=== PATIENT | male | born 1955 | race Two or more races ===

== ENCOUNTER 2024-04-09 10:56 | Outpatient (RCR) | payer BC, SELFPAY ==
[2024-04-08 13:58] LABS: Basophils % (Auto) 0 % (0-2.5); Eosinophils # (Auto) 0.2 Thou/mm3 (0.0-0.5); Eosinophils % (Auto) 3 % (0-10); Hematocrit 40.4 % (41.0-53.0); Hemoglobin 13.5 g/dL (13.5-16.0); Immature Granulocytes % (Auto) 0 % (0-0); Immature Granulocytes Auto 0.02 Thou/mm3 (0.00-0.00); Lymphocytes # (Auto) 1.2 Thou/mm3 (1.0-4.8); Lymphocytes % (Auto) 20 % (10-50); Mean Corpuscular HGB Conc 33.4 g/dl (31.0-37.0); Mean Corpuscular Hemoglobin 29.7 pg (25.0-35.0); Mean Corpuscular Volume 89 fL (80-100); Monocytes # (Auto) 0.5 Thou/mm3 (0.0-0.8); Monocytes % (Auto) 8 % (0-12); Neutrophils # (Auto) 4.2 Thou/mm3 (1.8-7.7); Neutrophils % (Auto) 68 % (37-80); Nucleated Red Blood Cell % 0 /100 WBC (0); Platelet Count 204 Thou/mm3 (140-440); RDW Standard Deviation 42.5 fL (35.1-43.9); Red Blood Count 4.54 Miln/mm3 (4.50-5.90); White Blood Count 6.1 Thou/mm3 (3.8-10.6)
[2024-04-08 14:02] LABS: Alanine Aminotransferase 18 U/L (10-49); Albumin, Serum 4.1 gm/dL (3.4-4.8); Albumin/Globulin Ratio 1.6 (1.2-2.2); Alkaline Phosphatase 87 U/L (46-116); Anion Gap 10 (7-16); Aspartate Amino Transferase 20 U/L (0-34); BUN/Creatinine Ratio 22 Ratio (12-20); Bilirubin,Total 0.5 mg/dL (0.3-1.2); Blood Urea Nitrogen 22 mg/dL (9-23); Calcium 9.3 mg/dL (8.3-10.6); Calcium (Corrected) 9.3 mg/dL (8.5-10.1); Carbon Dioxide 24.4 mMol/L (20.0-31.0); Chloride 106 mMol/L (98-107); Globulin 2.5 gm/dL (2.3-3.5); Glucose 83 mg/dL (74-106); Osmolality,Calculated 281 (275-295); Potassium 4.1 mMol/L (3.4-5.1); Sodium 140 mMol/L (136-145); Total Protein 6.6 gm/dL (5.7-8.2); eGFR > 60 See Note
== END 2024-04-10 23:59 | disposition home or self-care (01) ==
LOC: SCTC 10:56
PROVIDERS: PCP Physician Assistant; Referring Provider Physician Assistant; Visit Provider Internal Medicine Hematology & Oncology
DX: C18.6 Malignant neoplasm of descending colon (principal); Z90.49 Acquired absence of other specified parts of digestive tract; Z92.21 Personal history of antineoplastic chemotherapy; G62.0 Drug-induced polyneuropathy; T45.1X5D Adverse effect of antineoplastic and immunosuppressive drugs, subsequent encounter; R91.8 Other nonspecific abnormal finding of lung field
CPT/HCPCS: 36591; 80053; 82378; 85025; 99212; A4216; J1642; G0463

== ENCOUNTER → 2024-05-05 | Outpatient (CLI) | payer BC, SELFPAY ==
--- NOTE | 2024-05-05 13:00 | XR_ITS ---
Examination: CT chest with intravenous contrast CT abdomen with intravenous contrast CT pelvis with intravenous contrast 2-D coronal and sagittal reconstructions Time of exam: May 05, 2024 1350 hrs. Comparison PET/CT scan January 03, 2023 Indications: Diagnosis malignant neoplasm descending colon, post resection restaging CTDI: vol (mGy) : 21.7 DLP: (mGycm): 1154 Technique: Multiple axial images of the chest, abdomen and pelvis with intravenous contrast, 3.0 mm slice thickness. Images obtained post intravenous injection Isovue 370 60 cc. 2-D sagittal and coronal reconstructions. Low dose protocols were performed. One or more of the following dose reduction techniques were used; automated exposure control, adjustment of the mA and/or KV according to patient size, use of iterative reconstruction technique. Findings: No thoracic aortic aneurysm dilatation Pulmonary artery segments are not enlarged No paratracheal tracheobronchial or bronchopulmonary adenopathy 5 mm pulmonary nodule right lower lobe 3 mm pulmonary nodule right upper lobe 2 mm pulmonary nodule left lower lobe No pneumonia or pulmonary edema 6 mm liver cyst Fatty liver Contracted gallbladder Spleen not enlarged No pancreatic or adrenal mass No abdominal or pelvic lymphadenopathy 7 cm fat-containing umbilical hernia containing bowel but no incarcerated bowel Normal appendix Descending colon clips No pelvic lymphadenopathy Urinary bladder intact Severe osteopenia Advanced disc narrowing L4-L5 Impression: Subcentimeter noncalcified pulmonary nodules as above, with this study as baseline recommend 6 month follow-up CT chest without contrast
== END | disposition home or self-care (01) ==
PROVIDERS: PCP Physician Assistant; Referring Provider Nurse Practitioner Family; Visit Provider Nurse Practitioner Family
DX: R91.8 Other nonspecific abnormal finding of lung field (principal); C18.6 Malignant neoplasm of descending colon
CPT/HCPCS: 71260; 74177; A4649; Q9967

== ENCOUNTER 2024-05-12 09:56 | Outpatient (RCR) | payer BC, MEDICARE, SELFPAY | END 2024-06-08 23:59 | disposition home or self-care (01) | LOC: SCTC 09:56 | PROVIDERS: PCP Physician Assistant; Referring Provider Physician Assistant; Visit Provider Nurse Practitioner Family | DX: R91.1 Solitary pulmonary nodule (principal); K42.9 Umbilical hernia without obstruction or gangrene; G62.0 Drug-induced polyneuropathy; T45.1X5D Adverse effect of antineoplastic and immunosuppressive drugs, subsequent encounter; C18.6 Malignant neoplasm of descending colon; Z90.49 Acquired absence of other specified parts of digestive tract; Z92.21 Personal history of antineoplastic chemotherapy | CPT/HCPCS: 99212; G0463 ==

== ENCOUNTER → 2024-07-01 | Outpatient (CLI) | payer MEDICARE, BC, SELFPAY ==
--- NOTE | 2024-07-01 06:40 | EKG_ITS ---
[facility] Test Date: 2024-07-01 Pat Name: SCOTT REYNA Department: Room: - Gender: Male It Help Desk Technician: JOSE : 1955 Requested By: Kvng Barros Order Number: [id number] Reading MD: Kvng Barros Measurements Intervals [place] Rate: 49 P: IN: QRS: -35 QRSD: 90 T: 52 QT: 424 QTc: 383 Interpretive Statements SINUS BRADYCARDIA WITH 2ND DEGREE AV BLOCK, MOBITZ TYPE II MARKED LEFT AXIS DEVIATION [QRS AXIS < -30] POSSIBLE RIGHT VENTRICULAR CONDUCTION DELAY [RSR (QR) IN V1/V2] Compared to ECG 11/15/2022 10:21:45 Sinus rhythm no longer present First degree AV block no longer present /store/S0/[id number].pdf
[2024-07-01 09:58] VITALS: BMI 34.9
[2024-07-01 10:24] LABS: Collection Type, Urine Clean Catch
[2024-07-01 12:27] LABS: Basophils % (Auto) 0 % (0-2.5); Eosinophils # (Auto) 0.3 Thou/mm3 (0.0-0.5); Eosinophils % (Auto) 4 % (0-10); Hematocrit 43.8 % (41.0-53.0); Hemoglobin 15.1 g/dL (13.5-16.0); Immature Granulocytes % (Auto) 0 % (0-0); Immature Granulocytes Auto 0.01 Thou/mm3 (0.00-0.00); Lymphocytes # (Auto) 1.5 Thou/mm3 (1.0-4.8); Lymphocytes % (Auto) 21 % (10-50); Mean Corpuscular HGB Conc 34.5 g/dl (31.0-37.0); Mean Corpuscular Hemoglobin 30.1 pg (25.0-35.0); Mean Corpuscular Volume 87 fL (80-100); Monocytes # (Auto) 0.7 Thou/mm3 (0.0-0.8); Monocytes % (Auto) 10 % (0-12); Neutrophils # (Auto) 4.5 Thou/mm3 (1.8-7.7); Neutrophils % (Auto) 65 % (37-80); Nucleated Red Blood Cell % 0 /100 WBC (0); Platelet Count 184 Thou/mm3 (140-440); RDW Standard Deviation 44.1 fL (35.1-43.9); Red Blood Count 5.01 Miln/mm3 (4.50-5.90); White Blood Count 6.9 Thou/mm3 (3.8-10.6)
[2024-07-01 12:33] LABS: Bilirubin,Urine Negative (Negative); Blood,Urine Negative (Negative); Clarity,Urine Clear (Clear/Hazy); Color,Urine Lt-Yellow (Lt Yel-Yel); Glucose, Urine Negative (Negative); Ketones,Urine Negative (Negative); Leukocyte Esterase,Urine Negative (Negative); Nitrite,Urine Negative (Negative); PH,Urine 5.5 (5.0-7.0); Partial Thromboplastin Time 28.1 Seconds (22.0-36.0); Protein,Urine Negative (Neg - Trace); RBC,Urine 3 /hpf (0-3); Specific Gravity,Urine 1.021 (1.001-1.035); Squamous Epithelial Cell,Urine < 1 /hpf (0-5); Urobilinogen,Urine Negative mg/dL (0.0-1.0); WBC,Urine 1 /hpf (0-5)
[2024-07-01 12:38] LABS: Alanine Aminotransferase 37 U/L (10-49); Albumin, Serum 4.4 gm/dL (3.4-4.8); Albumin/Globulin Ratio 1.6 (1.2-2.2); Alkaline Phosphatase 94 U/L (46-116); Anion Gap 9 (7-16); Aspartate Amino Transferase 30 U/L (0-34); BUN/Creatinine Ratio 18 Ratio (12-20); Bilirubin,Total 0.6 mg/dL (0.3-1.2); Blood Urea Nitrogen 22 mg/dL (9-23); Calcium 9.2 mg/dL (8.3-10.6); Calcium (Corrected) 9.2 mg/dL (8.5-10.1); Carbon Dioxide 22.4 mMol/L (20.0-31.0); Chloride 108 mMol/L (98-107); Creatinine (Component) 1.2 mg/dL (0.6-1.3); Estimated Creatinine Clearance 69.8 mL/min (>60); Globulin 2.8 gm/dL (2.3-3.5); Glucose 102 mg/dL (74-106); Osmolality,Calculated 280 (275-295); Potassium 4.5 mMol/L (3.4-5.1); Sodium 139 mMol/L (136-145); Total Protein 7.2 gm/dL (5.7-8.2); eGFR > 60 See Note
--- NOTE | 2024-07-01 15:02 | SUR.PREOP ---
EKG second degree block, reviewed with Dr Blackburn. Dr Blackburn spoke with Dr Barros and it was decided to have pt see youth ministry director, Pt aware of surgery cancelled and to call Dr Barros's office for cardiac referral.
--- NOTE | 2024-07-01 15:07 | ESPR_ITS ---
Documentation for date of: 07/01/24 BRIEF PRE-OP ANESTHESIA NOTE: This patient was scheduled for elective hernia repair with Dr. Barros tomorrow but it's cancelled due to abnormal EKG and cardiac clearance. He has h/o colon cancer. Pre-op RN notified me about his EKG abnormality on routine pre-op eval. His EKG today shows sinus rhythm with 1 deg AVB and occasional 2nd deg Type 1 AVB. In 11/2022, his EKG did not show this. So I called and spoke with Dr Barros and reported his concerning EKG and we decided to cancel his surgery for tomorrow and his office will arrange for cardiology referral. Kinyarwanda speaking pre-op RN then called the patient and notified about his cancellation and about his EKG abnormality in my presence and the patient agreed and had no further questions for me. Tristin Blackburn MD
== END | disposition home or self-care (01) ==
LOC: SLAB 07-02 08:52
PROVIDERS: PCP Physician Assistant; Referring Provider Specialist; Visit Provider Specialist
DX: C18.6 Malignant neoplasm of descending colon (principal)
CPT/HCPCS: 36415; 80053; 81001; 85025; 85730; 93005; J1580; J7040

== ENCOUNTER → 2024-08-05 | Day surgery (SDC) | payer MEDICARE, BC, SELFPAY ==
--- NOTE | 2024-08-04 07:00 | EKG_ITS ---
[facility] (Formerly [facility])[3] Test Date: 2024-08-04 Pat Name: SCOTT REYNA Department: Room: - Gender: Male Manager Maintenance: KAVITHA : 1955 Requested By: Mark Zhao Order Number: [id number] Reading MD: Mark Zhao Measurements Intervals [place] Rate: 52 P: [place]: QRS: -34 QRSD: 90 T: 46 QT: 405 QTc: 378 Interpretive Statements SINUS BRADYCARDIA WITH 2ND DEGREE AV BLOCK, MOBITZ TYPE II MARKED LEFT AXIS DEVIATION [QRS AXIS < -30] POSSIBLE RIGHT VENTRICULAR CONDUCTION DELAY [RSR (QR) IN V1/V2] Compared to ECG 07/01/2024 10:40:28 No significant changes /store/S0/[id number]/ecg/[id number].pdf
[2024-08-04 12:22] LABS: Basophils % (Auto) 0 % (0-2.5); Eosinophils # (Auto) 0.2 Thou/mm3 (0.0-0.5); Eosinophils % (Auto) 3 % (0-10); Hematocrit 41.9 % (41.0-53.0); Hemoglobin 14.5 g/dL (13.5-16.0); Immature Granulocytes % (Auto) 0 % (0-0); Immature Granulocytes Auto 0.02 Thou/mm3 (0.00-0.00); Lymphocytes # (Auto) 0.9 Thou/mm3 (1.0-4.8); Lymphocytes % (Auto) 14 % (10-50); Mean Corpuscular HGB Conc 34.6 g/dl (31.0-37.0); Mean Corpuscular Hemoglobin 30.2 pg (25.0-35.0); Mean Corpuscular Volume 87 fL (80-100); Monocytes # (Auto) 0.6 Thou/mm3 (0.0-0.8); Monocytes % (Auto) 8 % (0-12); Neutrophils # (Auto) 5.2 Thou/mm3 (1.8-7.7); Neutrophils % (Auto) 75 % (37-80); Nucleated Red Blood Cell % 0 /100 WBC (0); Platelet Count 162 Thou/mm3 (140-440); RDW Standard Deviation 43.6 fL (35.1-43.9)
[2024-08-04 12:33] LABS: Anion Gap 7 (7-16); BUN/Creatinine Ratio 21 Ratio (12-20); Blood Urea Nitrogen 21 mg/dL (9-23); Calcium 8.9 mg/dL (8.3-10.6); Carbon Dioxide 25.6 mMol/L (20.0-31.0); Chloride 108 mMol/L (98-107); Glucose 97 mg/dL (74-106); Osmolality,Calculated 284 (275-295); Potassium 4.8 mMol/L (3.4-5.1); Sodium 141 mMol/L (136-145); eGFR > 60 See Note
[2024-08-04 12:39] LABS: Partial Thromboplastin Time 27.2 Seconds (22.0-36.0); Prothrombin Time 11.1 Seconds (9.0-12.2)
[2024-08-05 07:12] VITALS: BP 126/83; BP 136/78; PULSE 70; RESP 18; TEMP 38.1; O2SAT 95; BMI 32.6
--- NOTE | 2024-08-05 07:51 | PC.NURSE ---
As per Dr. Wise, pacemaker insertion cancelled at this time due to patient feeling congested and elevated temporal temperature 100.5
== END | disposition home or self-care (01) ==
LOC: SCCL 06:37
PROVIDERS: PCP Physician Assistant; Referring Provider Internal Medicine Cardiovascular Disease; Visit Provider Internal Medicine Cardiovascular Disease
DX: I49.5 Sick sinus syndrome (principal); Z01.810 Encounter for preprocedural cardiovascular examination
CPT/HCPCS: 33208; 36415; 80048; 85025; 85610; 85730; 93005; A4649; C1894; J0153; J0171; J0282; J0461; J0689; J2250; J2310; J2371; J3010; J3490

== ENCOUNTER 2024-08-17 06:43 | Day surgery (SDC) | payer MEDICARE, BC, SELFPAY ==
[2024-08-13 13:49] VITALS: BMI 32.7
[2024-08-14 12:50] LABS: Basophils % (Auto) 0 % (0-2.5); Eosinophils # (Auto) 0.4 Thou/mm3 (0.0-0.5); Eosinophils % (Auto) 6 % (0-10); Hematocrit 45.4 % (41.0-53.0); Hemoglobin 15.3 g/dL (13.5-16.0); Immature Granulocytes % (Auto) 1 % (0-0); Immature Granulocytes Auto 0.03 Thou/mm3 (0.00-0.00); Lymphocytes # (Auto) 1.7 Thou/mm3 (1.0-4.8); Lymphocytes % (Auto) 26 % (10-50); Mean Corpuscular HGB Conc 33.7 g/dl (31.0-37.0); Mean Corpuscular Hemoglobin 29.9 pg (25.0-35.0); Mean Corpuscular Volume 89 fL (80-100); Monocytes # (Auto) 0.5 Thou/mm3 (0.0-0.8); Monocytes % (Auto) 7 % (0-12); Neutrophils # (Auto) 3.9 Thou/mm3 (1.8-7.7); Neutrophils % (Auto) 61 % (37-80); Nucleated Red Blood Cell % 0 /100 WBC (0); Platelet Count 196 Thou/mm3 (140-440); RDW Standard Deviation 43.5 fL (35.1-43.9); Red Blood Count 5.11 Miln/mm3 (4.50-5.90); White Blood Count 6.5 Thou/mm3 (3.8-10.6)
[2024-08-14 12:59] LABS: Partial Thromboplastin Time 27.6 Seconds (22.0-36.0); Prothrombin Time 10.9 Seconds (9.0-12.2)
[2024-08-14 13:04] LABS: Anion Gap 9 (7-16); BUN/Creatinine Ratio 14 Ratio (12-20); Blood Urea Nitrogen 17 mg/dL (9-23); Calcium 9.3 mg/dL (8.3-10.6); Carbon Dioxide 25.5 mMol/L (20.0-31.0); Chloride 104 mMol/L (98-107); Creatinine (Component) 1.2 mg/dL (0.6-1.3); Glucose 95 mg/dL (74-106); Osmolality,Calculated 277 (275-295); Potassium 4.5 mMol/L (3.4-5.1); Sodium 138 mMol/L (136-145); eGFR > 60 See Note
[2024-08-17] VITALS (12 sets, daily range): BP systolic 121–151; BP diastolic 76–96; PULSE 60–74; RESP 12–19; TEMP 36.6–36.9; O2SAT 94–97
--- NOTE | 2024-08-17 09:14 | PC.NURSE ---
0840 patient is awake, alert, breathing unlabored, s/p pacemaker insertion, dressing to right chest dry with no bleeding. Report received from Jaylen ROBERSON, patient to recover for 2 hours. Vancomycin IV insusion ordered, chest xray ordered, arm sling ordered for 24 hours. Keflex PO antibiotic will be prescribed by MD to be taken at home.
--- NOTE | 2024-08-17 09:15 | XR_ITS ---
Examination: AP chest single view Technique one AP portable upright chest single view Date and time: August 17, 2024 0901 hours Comparison December 17, 2022 INDICATIONS: Postop pacemaker insertion FINDINGS: Cardiac leads satisfactory position No pneumothorax Stable position left subclavian Port-A-Cath tip SVC IMPRESSION: Cardiac leads satisfactory position No pneumothorax
[2024-08-17] MEDS: VANCOMYCIN/NS 1 GM IVPB 200 ML IV (09:22)
--- NOTE | 2024-08-17 16:45 | PC.NURSE ---
1124 patient is awake, alert, breathing unlabored, dressing to right chest dry with no bleeding, arm sling in place. vancomycin infusion completed, chest xray completed: leads in satisfactory position, no pneumothorax noted. Discharge instructions given to patient and Hellen, patient discharged home in wheelchair with all belongings.
--- NOTE | 2024-08-18 01:57 | ESOP_ITS ---
RE: SCOTT REYNA : 1955 DATE OF OPERATION: 08/17/2024 PROCEDURE PERFORMED: Implantation of dual chamber AV sequential permanent pacemaker. PREOPERATIVE DIAGNOSIS: Sick sinus syndrome, second-degree heart block, Mobitz type 2 heart block. POSTOPERATIVE DIAGNOSIS: Successful implantation of dual chamber AV sequential [employer] safe permanent pacemaker. HISTORY AND INDICATION: The patient is a 69-year-old male with history of multiple problems including hypertension, history of colon carcinoma and multiple medical problems. He has been having severe bradycardia. Heart rate drops to 40, type 2 second-degree Mobitz type 2 heart block and sick sinus syndrome, intermittent complete heart block as demonstrated on 7-day monitoring. Recommended cardiac clearance for head and neck surgery, but because of heart block, recommended to have pacemaker implantation prior to proceed with anesthesia. Class 1 indication for pacemaker implantation. DESCRIPTION OF PROCEDURE: The patient brought to cardiac catheterization laboratory. He was given conscious sedation, 2 mg Versed, 100 mcg of fentanyl for sedation. Right subclavian area was chosen because the left side has Port-A-cath. Right subclavian vein was cannulated by a micropuncture technique. Two guidewires were introduced. A linear incision was made with blunt dissection. Pocket was created. A 6 Green[place]ic sheath was introduced. The atrial, ventricle active fixation leads placed in the right atrial appendage, right ventricle apex respectively. Excellent thresholds are obtained. After obtaining a satisfactory threshold, both leads were anchored to the pectoralis fascia with 2-0 chromic suture. Skin was closed using ann. The patient tolerated the procedure well. No complications. DEVICE DETAILS: The device is manufactured by [employer], 2272. Serial number is [id number], atrial lead is 46 cm, [id number] model number. Serial number is [facility] [id number]. Ventricular lead serial number is [id number] cm length. The device threshold, atrial threshold 1.25 volts, capture threshold sensing 2 millivolts, lead impedance 510. Ventricle threshold is 0.5 volts, capture threshold is sensing 8 millivolts, lead impedance 700. The device program rate of 60 lower rate limit, upper rate limit 125. The device is MRI safe. FINAL SUMMARY: Successful implantation of dual chamber AV sequential permanent pacemaker. No complications. The patient was given IV antibiotics, Ancef before, and vancomycin 1 g after. The patient was discharged home in stable condition. Chest x-ray, no pneumothorax. DT: 00:12:53 TT: 01:33:00 Ref: [id number] - TID: [id number] MTDD
== END 2024-08-17 11:24 | disposition home or self-care (01) ==
PROVIDERS: Referring Provider Internal Medicine Cardiovascular Disease; Visit Provider Internal Medicine Cardiovascular Disease
PROC: (CPT 33208; principal; 2024-08-17 07:30)
DX: I49.5 Sick sinus syndrome (principal); I44.1 Atrioventricular block, second degree; I10 Essential (primary) hypertension; Z85.038 Personal history of other malignant neoplasm of large intestine
CPT/HCPCS: 33208; 36415; 80048; 85025; 85610; 85730; 99152; 99153; A4565; A4649; C1785; C1894; C1898; J0171; J0461; J0689; J0690; J2250; J2310; J2371; J3010; J3370; J3490

== ENCOUNTER → 2024-09-10 | Outpatient (CLI) | payer BC, MEDICARE, SELFPAY ==
[2024-09-10 10:34] LABS: Basophils # (Auto) 0.0 Thou/mm3 (0.0-0.2); Basophils % (Auto) 0 % (0-2.5); Eosinophils # (Auto) 0.2 Thou/mm3 (0.0-0.5); Eosinophils % (Auto) 4 % (0-10); Hematocrit 42.6 % (41.0-53.0); Hemoglobin 14.4 g/dL (13.5-16.0); Immature Granulocytes Auto 0.02 Thou/mm3 (0.00-0.00); Lymphocytes # (Auto) 1.4 Thou/mm3 (1.0-4.8); Lymphocytes % (Auto) 27 % (10-50); Mean Corpuscular HGB Conc 33.8 g/dl (31.0-37.0); Mean Corpuscular Hemoglobin 29.9 pg (25.0-35.0); Mean Corpuscular Volume 88 fL (80-100); Monocytes # (Auto) 0.5 Thou/mm3 (0.0-0.8); Monocytes % (Auto) 9 % (0-12); Neutrophils # (Auto) 3.0 Thou/mm3 (1.8-7.7); Neutrophils % (Auto) 60 % (37-80); Nucleated Red Blood Cell # 0.00 Thou/mm3 (0.00-0.00); Nucleated Red Blood Cell % 0 /100 WBC (0); Platelet Count 163 Thou/mm3 (140-440); RDW Standard Deviation 45.3 fL (35.1-43.9); Red Blood Count 4.82 Miln/mm3 (4.50-5.90); White Blood Count 5.1 Thou/mm3 (3.8-10.6)
[2024-09-10 11:03] LABS: Carcinoembryonic Antigen 2.6 ng/mL (0.0-5.0)
[2024-09-10 11:12] LABS: Alanine Aminotransferase 19 U/L (10-49); Albumin, Serum 4.2 gm/dL (3.4-4.8); Albumin/Globulin Ratio 1.6 (1.2-2.2); Alkaline Phosphatase 81 U/L (46-116); Anion Gap 6 (7-16); Aspartate Amino Transferase 22 U/L (0-34); BUN/Creatinine Ratio 9 Ratio (12-20); Bilirubin,Total 0.9 mg/dL (0.3-1.2); Blood Urea Nitrogen 10 mg/dL (9-23); Calcium 9.1 mg/dL (8.3-10.6); Calcium (Corrected) 9.1 mg/dL (8.5-10.1); Carbon Dioxide 24.9 mMol/L (20.0-31.0); Chloride 107 mMol/L (98-107); Creatinine (Component) 1.1 mg/dL (0.6-1.3); Globulin 2.6 gm/dL (2.3-3.5); Glucose 104 mg/dL (74-106); Osmolality,Calculated 274 (275-295); Potassium 4.4 mMol/L (3.4-5.1); Sodium 138 mMol/L (136-145); Total Protein 6.8 gm/dL (5.7-8.2); eGFR > 60 See Note
== END | disposition home or self-care (01) ==
PROVIDERS: PCP Physician Assistant; Referring Provider Nurse Practitioner Family; Visit Provider Nurse Practitioner Family
DX: C18.6 Malignant neoplasm of descending colon (principal)
CPT/HCPCS: 36415; 80053; 82378; 85025

== ENCOUNTER 2024-09-14 09:37 | Outpatient (RCR) | payer BC, MEDICARE, SELFPAY | END 2024-10-08 23:59 | disposition home or self-care (01) | LOC: SCTC 09:37 | PROVIDERS: PCP Physician Assistant; Referring Provider Internal Medicine Hematology & Oncology; Visit Provider Nurse Practitioner Family | DX: C18.6 Malignant neoplasm of descending colon (principal); Z90.49 Acquired absence of other specified parts of digestive tract; Z92.21 Personal history of antineoplastic chemotherapy; G62.0 Drug-induced polyneuropathy; T45.1X5D Adverse effect of antineoplastic and immunosuppressive drugs, subsequent encounter; R91.1 Solitary pulmonary nodule; K42.9 Umbilical hernia without obstruction or gangrene | CPT/HCPCS: 99212; G0463 ==

== ENCOUNTER 2024-09-28 08:20 | Day surgery (SDC) | payer MEDICARE, BC, SELFPAY ==
[2024-09-25 08:59] VITALS: BMI 36.5
[2024-09-25 09:40] LABS: Collection Type, Urine Clean Catch
[2024-09-25 12:02] LABS: Basophils # (Auto) 0.0 Thou/mm3 (0.0-0.2); Basophils % (Auto) 0 % (0-2.5); Eosinophils # (Auto) 0.2 Thou/mm3 (0.0-0.5); Eosinophils % (Auto) 3 % (0-10); Hematocrit 42.5 % (41.0-53.0); Hemoglobin 14.9 g/dL (13.5-16.0); Immature Granulocytes Auto 0.02 Thou/mm3 (0.00-0.00); Lymphocytes # (Auto) 1.4 Thou/mm3 (1.0-4.8); Lymphocytes % (Auto) 25 % (10-50); Mean Corpuscular HGB Conc 35.1 g/dl (31.0-37.0); Mean Corpuscular Hemoglobin 30.5 pg (25.0-35.0); Mean Corpuscular Volume 87 fL (80-100); Monocytes # (Auto) 0.5 Thou/mm3 (0.0-0.8); Monocytes % (Auto) 9 % (0-12); Neutrophils # (Auto) 3.4 Thou/mm3 (1.8-7.7); Neutrophils % (Auto) 62 % (37-80); Nucleated Red Blood Cell # 0.00 Thou/mm3 (0.00-0.00); Nucleated Red Blood Cell % 0 /100 WBC (0); Platelet Count 180 Thou/mm3 (140-440); RDW Standard Deviation 45.1 fL (35.1-43.9); Red Blood Count 4.89 Miln/mm3 (4.50-5.90); White Blood Count 5.5 Thou/mm3 (3.8-10.6)
[2024-09-25 12:06] LABS: Bilirubin,Urine Negative (Negative); Blood,Urine Negative (Negative); Clarity,Urine Clear (Clear/Hazy); Color,Urine Yellow (Lt Yel-Yel); Glucose, Urine Negative (Negative); Ketones,Urine Negative (Negative); Leukocyte Esterase,Urine Negative (Negative); Nitrite,Urine Negative (Negative); PH,Urine 5.5 (5.0-7.0); Protein,Urine Negative (Neg - Trace); RBC,Urine 3 /hpf (0-3); Specific Gravity,Urine 1.022 (1.001-1.035); Squamous Epithelial Cell,Urine < 1 /hpf (0-5); Urobilinogen,Urine Negative mg/dL (0.0-1.0); WBC,Urine 2 /hpf (0-5)
[2024-09-25 12:27] LABS: Alanine Aminotransferase 21 U/L (10-49); Albumin, Serum 4.3 gm/dL (3.4-4.8); Albumin/Globulin Ratio 1.6 (1.2-2.2); Alkaline Phosphatase 95 U/L (46-116); Anion Gap 14 (7-16); Aspartate Amino Transferase 24 U/L (0-34); BUN/Creatinine Ratio 14 Ratio (12-20); Bilirubin,Total 0.5 mg/dL (0.3-1.2); Blood Urea Nitrogen 14 mg/dL (9-23); Calcium 8.9 mg/dL (8.3-10.6); Calcium (Corrected) 8.9 mg/dL (8.5-10.1); Carbon Dioxide 22.5 mMol/L (20.0-31.0); Chloride 106 mMol/L (98-107); Creatinine (Component) 1.0 mg/dL (0.6-1.3); Estimated Creatinine Clearance 81.9 mL/min (>60); Globulin 2.7 gm/dL (2.3-3.5); Glucose 110 mg/dL (74-106); Osmolality,Calculated 284 (275-295); Partial Thromboplastin Time 27.4 Seconds (22.0-36.0); Potassium 4.4 mMol/L (3.4-5.1); Sodium 142 mMol/L (136-145); Total Protein 7.0 gm/dL (5.7-8.2); eGFR > 60 See Note
[2024-09-28] VITALS (10 sets, daily range): BP systolic 121–139; BP diastolic 71–94; PULSE 60–86; RESP 12–18; TEMP 36.2–37.2; O2SAT 92–97; BMI 35.6
--- NOTE | 2024-09-28 09:16 | SUR.PREOP ---
Patient expressed gratitude for prayer before their procedure.
--- NOTE | 2024-09-28 12:16 | SUR.PHASEI ---
1216 patient arrived to recovery resting comfortably in [facility], on oxygen 12L via oxy mask with an oral airway and nasal airway in place, oxygen level 93%, Dr. Blackburn aware and okay with oxygen level, breathing unlabored, vital signs stable, dressing intact to abdomen; ann, telfa, gauze, abd, medipore tape, no bleeding noted, 7flat JARED drain in place with drain sponge with serosanguineous fluid, report received from Dr. Blackburn and Haider ROBERSON
--- NOTE | 2024-09-28 12:35 | SUR.PHASEI ---
pt lying in [facility] with eyes closed, breathing unalbored, dressing to abdomen clean, dry, and intact with abdominal binder in place, JARED drain intact and draining serosanguineous fluid, report from Katerin Bañuelos RN
--- NOTE | 2024-09-28 12:35 | SUR.PHASEI ---
1235 Report given to Katerin Gusman RN
--- NOTE | 2024-09-28 12:45 | SUR.PHASEI ---
pt tolerating oral fluids without difficulty swallowing or n/v
--- NOTE | 2024-09-28 12:50 | PD.SUROPNT ---
Date of Procedure 09/28/24 Pre Op Diagnosis Incarcerated ventral incisional hernia Post Op Diagnosis Same. Procedure Repair of ventral incarcerated incisional hernia and an umbilical hernia measuring 13 cm in diameter. Implantation of Ventralex ST oval large patch. On September 28, 2024 Intraoperative ultrasound and IRMA block Findings This patient had a large ventral incisional hernia that was incarcerated with bowel and omentum. The defect measured about 13 cm in vertical length and then 10 cm horizontally. The hernia also extended laterally for 10 cm. This required repair. The lysis of adhesions was necessary and was carried out. Patient also had an umbilical hernia that was incorporated into the ventral hernia repair. Procedure Description The patient is interviewed in the preoperative area and the procedure was discussed in detail with the patient including expectation of outcomes. Explanation of the technique and complications. An informed consent was obtained. Anesthesia consent was obtained by the anesthesiologist. The hernia sites were marked on the surface. Patient is brought back to the operating room. The patient is positioned supine on the operating table and general anesthesia is administered in a satisfactory manner. The chest abdomen and thigh genitalia regions are prepped and draped in usual manner. IV antibiotics were given and a timeout procedure was carried out. Intraoperative ultrasound is carried out with 7.5 MHz linear digital ultrasound probe. The hernia defects were identified and marked on the surface to assess the extent of the procedure. Then the local anesthesia quarter percent Marcaine with epinephrine is used. Vertical incision is made around the previous incision and scar is removed. Dissection is carried out in the subcutaneous tissue to the fascia and the 2 different defects are identified. Gentle dissection is carried out and hernia sacs are isolated. The sac is opened and was removed as specimen. There were significantly dense adhesions of the omentum within the hernia sac and surrounding subcutaneous tissue. The contents are reduced. Hemostasis is achieved. Dissection is carried out circumferentially from the peritoneal side to make sure there were no adhesions and bowel attached to the anterior abdominal wall. Lysis of adhesions is carried out on the peritoneal side releasing the omental adhesions circumferentially to about 10 cm around. All the hernias defects were incorporated into one defect. The defect is measured. It is about 13.5 cm in length and 7 cm in the width. The laps and instrument counts are obtained they are correct x2 and then I selected a Ventrio ST oval patch to be placed in the underlay position. The patch is oval and measures about 17.5 cm in maximum length. The patch is secured in the preperitoneal space and attached to the fascia in circumferential manner by interrupted O' Ethibond stitches. Laps and instrument counts were correct ?2. The defect in the fascia is closed over the patch. Patch was previously irrigated with gentamicin solution. Hemostasis is achieved. By separate stab incision 7 [place] Qamar-Butler is placed on the left side where the large portion of the hernia sac was it was sutured in place using 2-0 nylon suture. Operative field is thoroughly irrigated with saline solution and the subcutaneous tissues approximated with 3-0 chromic interrupted suture. The skin is approximated by ann. Tap block is carried out bilaterally by injecting half percent Marcaine with epinephrine on both the sides with the rectus abdominis block. Sterile dressing and abdominal binder is applied. Patient tolerated the procedure very well complications none. Patient is transferred to recovery room in a satisfactory condition. Anesthesia GETA Drains 7 [place]raini flat Qamar-Butler Pathology / specimen Other (Hernia sac and skin scar) Estimated Blood Loss 15 Condition Stable Disposition PACU Surgeon Kvng Barros MD Surgical Staff Operation Date: 09/28/24 11:45 Case Staff Anesthesiologist: Tristin Blackburn RNchief maintenance supervisor: Mari Siegel RN top lift and automatic window repairer Brenda surgical garment assembly supervisor with the surgical technology student.
--- NOTE | 2024-09-28 13:11 | SUR.PHASEII ---
report to Katerin Bañuelos RN
--- NOTE | 2024-09-28 13:11 | SUR.PHASEII ---
1311 Report received from Katerin Gusman RN
--- NOTE | 2024-09-28 13:54 | SUR.PHASEII ---
1354 Patient meets discharge criteria from recovery, awake and alert, breathing unlabored, vital signs stable, denies pain, dressing intact; no bleeding noted, JARED drain education provided to patient and patient , all questions answer regarding drain, drinking fluids; denies nausea, discharge instructions given to patient and patients with the assistance of the telephone commission sales associate Araceli, patients signed discharge instructions. Patient given all his belongings prior to discharge, transported via wheelchair and left in a private vehicle.
== END 2024-09-28 13:54 | disposition home or self-care (01) ==
PROVIDERS: PCP Physician Assistant; Referring Provider Specialist; Visit Provider Specialist
PROC: (CPT 49596; principal; 2024-09-28 11:30)
DX: K43.0 Incisional hernia with obstruction, without gangrene (principal); I49.5 Sick sinus syndrome; Z85.038 Personal history of other malignant neoplasm of large intestine; Z95.0 Presence of cardiac pacemaker; K42.0 Umbilical hernia with obstruction, without gangrene
CPT/HCPCS: 49596; 36415; 80053; 81001; 85025; 85730; A4217; A4649; C1781; J0131; J0690; J0694; J1100; J1171; J1580; J2704; J2765; J3010; J3490; J1596

== ENCOUNTER 2025-01-14 09:43 | Outpatient (RCR) | payer MEDICARE, BC, SELFPAY ==
[2025-01-13 12:24] LABS: Basophils # (Auto) 0.0 Thou/mm3 (0.0-0.2); Basophils % (Auto) 0 % (0-2.5); Eosinophils # (Auto) 0.1 Thou/mm3 (0.0-0.5); Eosinophils % (Auto) 2 % (0-10); Hematocrit 45.3 % (41.0-53.0); Hemoglobin 15.7 g/dL (13.5-16.0); Immature Granulocytes Auto 0.01 Thou/mm3 (0.00-0.00); Lymphocytes # (Auto) 1.2 Thou/mm3 (1.0-4.8); Lymphocytes % (Auto) 21 % (10-50); Mean Corpuscular HGB Conc 34.7 g/dl (31.0-37.0); Mean Corpuscular Hemoglobin 30.8 pg (25.0-35.0); Mean Corpuscular Volume 89 fL (80-100); Monocytes # (Auto) 0.5 Thou/mm3 (0.0-0.8); Monocytes % (Auto) 8 % (0-12); Neutrophils # (Auto) 3.8 Thou/mm3 (1.8-7.7); Neutrophils % (Auto) 68 % (37-80); Nucleated Red Blood Cell # 0.00 Thou/mm3 (0.00-0.00); Nucleated Red Blood Cell % 0 /100 WBC (0); Platelet Count 205 Thou/mm3 (140-440); RDW Standard Deviation 42.8 fL (35.1-43.9); Red Blood Count 5.10 Miln/mm3 (4.50-5.90); White Blood Count 5.6 Thou/mm3 (3.8-10.6)
[2025-01-13 12:44] LABS: Alanine Aminotransferase 17 U/L (10-49); Albumin, Serum 4.6 gm/dL (3.4-4.8); Albumin/Globulin Ratio 2.3 (1.2-2.2); Alkaline Phosphatase 78 U/L (46-116); Anion Gap 9 (7-16); Aspartate Amino Transferase 19 U/L (0-34); BUN/Creatinine Ratio 15 Ratio (12-20); Bilirubin,Total 0.7 mg/dL (0.3-1.2); Blood Urea Nitrogen 16 mg/dL (9-23); Calcium 9.2 mg/dL (8.3-10.6); Calcium (Corrected) 9.2 mg/dL (8.5-10.1); Carbon Dioxide 26.3 mMol/L (20.0-31.0); Chloride 108 mMol/L (98-107); Creatinine (Component) 1.1 mg/dL (0.6-1.3); Globulin 2.0 gm/dL (2.3-3.5); Glucose 94 mg/dL (74-106); Osmolality,Calculated 286 (275-295); Potassium 4.3 mMol/L (3.4-5.1); Sodium 143 mMol/L (136-145); Total Protein 6.6 gm/dL (5.7-8.2); eGFR > 60 See Note
[2025-01-13 12:47] LABS: Carcinoembryonic Antigen 2.1 ng/mL (0.0-5.0)
== END 2025-02-07 23:59 | disposition home or self-care (01) ==
LOC: SCTC 09:43
PROVIDERS: Internal Medicine Hematology & Oncology; PCP Physician Assistant; Referring Provider Physician Assistant; Visit Provider Nurse Practitioner Family
DX: C18.6 Malignant neoplasm of descending colon (principal); G62.0 Drug-induced polyneuropathy; T45.1X5D Adverse effect of antineoplastic and immunosuppressive drugs, subsequent encounter; Z90.49 Acquired absence of other specified parts of digestive tract; Z92.21 Personal history of antineoplastic chemotherapy
CPT/HCPCS: 36591; 80053; 82378; 85025; 99212; A4216; J1642; G0463